=== PATIENT | female | born 1995 | race Two or more races ===

== ENCOUNTER 2023-02-14 10:15 | Emergency (ER) | payer MEDICAID ==
[~2023-02-14] VITALS: Ht 160 cm; Wt 139.9 kg
[2023-02-14 10:48] VITALS: BP 134/75; PULSE 110; RESP 16; O2SAT 97
[2023-02-14 11:35] LABS: Urine Bacteria FEW /hpf (None Seen); Urine Blood Negative /uL (Negative); Urine Clarity HAZY (Clear); Urine Color Yellow (Yellow); Urine Mucus FEW (None Seen); Urine Protein, UAD TRACE (Negative); Urine Specific Gravity 1.026 (1.001-1.035); Urine Urobilinogen Normal (Negative); Urine WBC 4 /hpf (0 - 5)
[2023-02-14 12:29] VITALS: TEMP 98.4
[2023-02-14] MEDS ORDERED: ACET-1304 PO ×3 (12:30→12:45)
[2023-02-14] MEDS ORDERED: NITR-87 PO ×3 (12:30→12:45)
[2023-02-14] MEDS ORDERED: ACETAMINOPHEN 500 MG TAB PO ONE (12:30)
== END 2023-02-14 12:32 | disposition home or self-care (01) ==
LOC: ER 10:15
DX: O23.42 Unspecified infection of urinary tract in pregnancy, second trimester (principal); N39.0 Urinary tract infection, site not specified; Z3A.14 14 weeks gestation of pregnancy
CPT/HCPCS: 76801; 81001; 81025